=== PATIENT | female | born 1990 | race Caucasian/White ===

== ENCOUNTER 2022-03-18 18:00 | Emergency (ER) | payer OTHER ==
[~2022-03-18] VITALS: Ht 167.6 cm; Wt 77.3 kg
[2022-03-18 18:03] VITALS: BP 123/75
== END 2022-03-18 23:29 | disposition home or self-care (01) ==
LOC: EMS 18:00
DX: S00.33XA Contusion of nose, initial encounter (principal); X58.XXXA Exposure to other specified factors, initial encounter; Y93.89 Activity, other specified; Y92.89 Other specified places as the place of occurrence of the external cause; Y99.8 Other external cause status
CPT/HCPCS: 70160; 99283